=== PATIENT | male | born 1950 | race Caucasian/White ===

== ENCOUNTER 2021-03-03 23:17 | Emergency (ER) | payer OTHER ==
[2021-03-03] MEDS ORDERED: LIDOCAINE 1% W/EPI 1:100,000 MDV 20 ML VIAL ONE (23:59)
[2021-03-04] MEDS ORDERED: CEPHALEXIN 250 MG CAP ONE (00:55)
--- NOTE | 2021-03-04 01:10 | ER ---
Nurse's Notes [facility] Name: Adolph Arriaga Age: 70 yrs Sex: Female : 1950 Arrival Date: 03/03/2021 Time: 23:24 Bed 27 Private MD: Diagnosis: Fall on same level, unspecified;Contusion of left knee;Abrasion, left knee;Laceration without foreign body of unspecified part of head Presentation: 03/03 23:26 Chief complaint: Patient states: Pt reports "getting foot caught under leg of foot bc5 stool" and "tripped up and fell forward". Pt denies dizziness, blurry vision, LOC at this time. Lac noted to left side of forehead. A\\T\\O x 3, RR is even and unlabored, speaking in clear and complete sentences. Bleeding controlled via pressure dressing. Coronavirus screen: Client denies travel out of the [place] in the last 14 days. At this time, the client does not indicate any symptoms associated with coronavirus-19. Ebola Screen: Patient negative for fever greater than or equal to 101.5 degrees Fahrenheit, and additional compatible Ebola Virus Disease symptoms Patient denies exposure to infectious person. Patient denies travel to an Ebola-affected area in the 21 days before illness onset. No symptoms or risks identified at this time. Initial Sepsis Screen: Does the patient meet any 2 criteria? No. Patient's initial sepsis screen is negative. Does the patient have a suspected source of infection? No. Patient's initial sepsis screen is negative. Risk Assessment: Do you want to hurt yourself or someone else? Patient reports no desire to harm self or others. Onset of symptoms was March 03, 2021. 23:26 Method Of Arrival: Ambulatory bc5 23:26 Acuity: MARIA VICTORIA 3 bc5 Triage Assessment: 23:30 General: Appears comfortable, Behavior is calm, cooperative. Pain: Complains of pain in bc5 left leg. Historical: - Allergies: 23:30 Morphine (Vomiting); bc5 - PMHx: 23:31 Hypertensive disorder; bc5 - PSHx: 23:31 Stented artery; bc5 - Immunization history:: Client reports having NOT received the Covid vaccine. - Social history:: Smoking status: Patient denies any tobacco usage or history of. - Family history:: not pertinent. Screenin:30 Abuse screen: Denies threats or abuse. Denies injuries from another. Nutritional bc5 screening: No deficits noted. Tuberculosis screening: No symptoms or risk factors identified. Fall Risk. Assessment: 03/04 00:14 General: Appears in no apparent distress. distressed, Behavior is calm, cooperative, lh3 appropriate for age. Vital Signs: 03/03 23:26 BP 190 / 115; Pulse 68; Resp 17; Temp 98(O); Pulse Ox 97% on R/A; Weight 95.25 kg (R); bc5 Height 5 ft. 8 in. (172.72 cm) (R); Pain 10/31; 03/04 00:14 BP 180 / 110; Pulse 73; Resp 18; Pulse Ox 97% on R/A; lh3 01:02 BP 135 / 88; Pulse 71; Resp 18; Pulse Ox 95% on R/A; lh3 03/03 23:26 Body Mass Index 31.93 (95.25 kg, 172.72 cm) bc5 [place] Coma Score: 00:17 Eye Response: spontaneous(4). Verbal Response: oriented(5). Motor Response: obeys manish commands(6). Total: 15. ED Course: 03/03 23:24 Patient arrived in ED. wg 23:27 Brian Johnson MD is Attending Physician. [facility] 23:29 Triage completed. bc5 23:32 Arm band placed on right wrist. bc5 23:32 Patient has correct armband on for positive identification. Placed in gown. Bed in low bc5 position. Call light in reach. Side rails up X2. Adult w/ patient. 03/04 00:14 No provider procedures requiring assistance completed. Inserted saline lock: 18 gauge lh3 in right forearm, using aseptic technique. Blood collected. 00:15 Norma Ozuna, NOMI is Primary Nurse. 3 00:29 CT Head C Spine In Process Unspecified. EDMS 01:31 Knee Left 3 View XRAY In Process Unspecified. EDMS 01:34 IV discontinued, intact, bleeding controlled, No redness/swelling at site. Pressure lh3 dressing applied. Administered Medications: 03/03 23:47 Drug: Lidocaine-Epinephrine -1%: (1:100,000) 1 vials Volume: 20 ml; Route: Infiltration;3 03/04 00:13 Drug: Lidocaine-Epinephrine -1%: (1:100,000) 8 ml Volume: 20 ml; Route: Infiltration; 3 00:31 Drug: KeFLEX (cephalexin) 500 mg Route: PO; 3 01:34 Follow up: Response: No adverse reaction 3 01:26 Drug: Tetanus-Diphtheria Toxoid Adult 0.5 ml {Milker Machine: [employer]. Exp: 3 08/08/2022. Lot #: [id number]. } Route: IM; Site: left deltoid; 01:33 Follow up: Response: No adverse reaction 3 Outcome: 01:10 Discharge ordered by MD. hammond 01:34 Discharged to home ambulatory, with significant other. 3 01:34 Condition: good 01:34 Discharge instructions given to patient, Instructed on discharge instructions, medication usage, Demonstrated understanding of instructions, follow-up care, medications, Prescriptions given X 2. 01:35 Patient left the ED. 3 Signatures: Dispatcher [employer] EDMS Brian Johnson MD MD cha Hardee, Latisha, RN RN [facility] Gonzales An RN [place], RN RN 5
--- NOTE | 2021-03-04 01:11 | EDPHYS ---
Physician Documentation [facility] Name: Adolph Arriaga Age: 70 yrs Sex: Female : 1950 Arrival Date: 03/03/2021 Time: 23:24 Bed 27 Private MD: ED Physician Brian Johnson HPI: 03/04 00:12 This 70 yrs old Female presents to ER via Ambulatory with complaints of fall manish hit head and left knee. 00:12 The patient presents with decreased range of motion, pain, that is acute. The manish complaints affect the left knee, forehead. Context: The problem was sustained at home. Onset: The symptoms/episode began/occurred just prior to arrival. Modifying factors: The symptoms are alleviated by nothing. the symptoms are aggravated by nothing. Associated signs and symptoms: The patient has no apparent associated signs or symptoms. The patient complains of pain to the forehead. The patient describes the headache as constant. Onset: The symptoms/episode began/occurred just prior to arrival. Associated signs and symptoms: The patient has no apparent associated signs or symptoms. Severity of symptoms: At its worst the pain was mild, in the emergency department the pain is unchanged. Historical: - Allergies: 03/03 23:30 Morphine (Vomiting); bc5 - PMHx: 23:31 Hypertensive disorder; bc5 - PSHx: 23:31 Stented artery; bc5 - Immunization history:: Client reports having NOT received the Covid vaccine. - Social history:: Smoking status: Patient denies any tobacco usage or history of. - Family history:: not pertinent. ROS: 03/04 00:12 Constitutional: Negative for fever, chills, and weight loss, Eyes: Negative for injury, manish pain, redness, and discharge, ENT: Negative for injury, pain, and discharge, Neck: Negative for injury, pain, and swelling, Cardiovascular: Negative for chest pain, palpitations, and edema, Respiratory: Negative for shortness of breath, cough, wheezing, and pleuritic chest pain, Abdomen/GI: Negative for abdominal pain, nausea, vomiting, diarrhea, and constipation, Back: Negative for injury and pain, : Negative for injury, bleeding, discharge, and swelling, Psych: Negative for depression, anxiety, suicide ideation, homicidal ideation, and hallucinations, Allergy/Immunology: Negative for hives, rash, and allergies, Endocrine: Negative for neck swelling, polydipsia, polyuria, polyphagia, and marked weight changes, Hematologic/Lymphatic: Negative for swollen nodes, abnormal bleeding, and unusual bruising. MS/extremity: Positive for decreased range of motion, pain, swelling, of the left knee. Exam: 00:12 Constitutional: This is a well developed, well nourished patient who is awake, alert, manish and in no acute distress. Head/Face: Normocephalic, atraumatic. Eyes: Pupils equal round and reactive to light, extra-ocular motions intact. Lids and lashes normal. Conjunctiva and sclera are non-icteric and not injected. Cornea within normal limits. Periorbital areas with no swelling, redness, or edema. ENT: Nares patent. No nasal discharge, no septal abnormalities noted. Tympanic membranes are normal and external auditory canals are clear. Oropharynx with no redness, swelling, or masses, exudates, or evidence of obstruction, uvula midline. Mucous membranes moist. Neck: Trachea midline, no thyromegaly or masses palpated, and no cervical lymphadenopathy. Supple, full range of motion without nuchal rigidity, or vertebral point tenderness. No Meningismus. Chest/axilla: Normal chest wall appearance and motion. Nontender with no deformity. No lesions are appreciated. Cardiovascular: Regular rate and rhythm with a normal S1 and S2. No gallops, murmurs, or rubs. Normal PMI, no JVD. No pulse deficits. Respiratory: Lungs have equal breath sounds bilaterally, clear to auscultation and percussion. No rales, rhonchi or wheezes noted. No increased work of breathing, no retractions or nasal flaring. Abdomen/GI: Soft, non-tender, with normal bowel sounds. No distension or tympany. No guarding or rebound. No evidence of tenderness throughout. Back: No spinal tenderness. No costovertebral tenderness. Full range of motion. Female : Normal external genitalia. Skin: Warm, dry with normal turgor. Normal color with no rashes, no lesions, and no evidence of cellulitis. Neuro: Awake and alert, GCS 15, oriented to person, place, time, and situation. Cranial nerves II-XII grossly intact. Motor strength 5/5 in all extremities. Sensory grossly intact. Cerebellar exam normal. Normal gait. Psych: Awake, alert, with orientation to person, place and time. Behavior, mood, and affect are within normal limits. 00:12 Musculoskeletal/extremity: Extremities: grossly normal except: noted in the left knee: decreased ROM, pain, ROM: full active range of motion, full passive range of motion, Circulation is intact in all extremities. Sensation intact. Compartment Syndrome exam of affected extremity: is normal. Weight bearing: able to fully bear weight, without difficulty, DVT Exam: negative Homans' sign noted on exam, no appreciated bluish discoloration, no erythema, no increased warmth, pain, swelling, tenderness. Vital Signs: 03/03 23:26 BP 190 / 115; Pulse 68; Resp 17; Temp 98(O); Pulse Ox 97% on R/A; Weight 95.25 kg (R); bc5 Height 5 ft. 8 in. (172.72 cm) (R); Pain 6/10; 03/04 00:14 BP 180 / 110; Pulse 73; Resp 18; Pulse Ox 97% on R/A; lh3 01:02 BP 135 / 88; Pulse 71; Resp 18; Pulse Ox 95% on R/A; lh3 03/03 23:26 Body Mass Index 31.93 (95.25 kg, 172.72 cm) bc5 [place] Coma Score: 00:17 Eye Response: spontaneous(4). Verbal Response: oriented(5). Motor Response: obeys manish commands(6). Total: 15. Laceration: 00:16 Wound Repair of 4cm ( 1.6in ) subcutaneous laceration to forehead. Irregularly shaped.. manish Distal neuro/vascular/tendon intact. Anesthesia: Local anesthetic administered with 8 mls of 1% lidocaine w/ Epi. Wound prep: Simple cleansing. Skin closed with 2 5-0 Vicryl using interrupted sutures and sterile technique. Dressed with Neosporin, pressure dressing, non-adherent dressing. Patient tolerated well. MDM: 03/03 23:27 Patient medically screened. manish 03/04 00:17 Differential diagnosis: contusion, cerebral vascular accident, epidural hematoma, manish intracerebral hemorrhage. Data reviewed: vital signs, nurses notes. 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 Counseling: I had a detailed discussion with the patient and/or guardian regarding: the historical points, exam findings, and any diagnostic results supporting the discharge/admit diagnosis, the presence of at least one elevated blood pressure reading (>120/80) during this emergency department visit, radiology results. 03/03 23:44 Order name: CT Head C Spine [facility] 03/04 00:12 Order name: Knee Left 3 View XRAY [facility] 03/04 00:10 Order name: Dressing - Wound; Complete Time: 00: [facility] 03/04 00:10 Order name: Gloves, Sterile; Complete Time: 00: [facility] 03/04 00:10 Order name: Prolene, Sutures; Complete Time: 00: [facility] 03/04 00:10 Order name: Setup Suture Tray; Complete Time: : [facility] 03/04 00:10 Order name: Ice pack; Complete Time: : [facility] 03/04 00:11 Order name: Maurice Wrap; Complete Time: 00:13 [facility] Administered Medications: 03/03 23:47 Drug: Lidocaine-Epinephrine -1%: (1:100,000) 1 vials Volume: 20 ml; Route: Infiltration;[facility] 03/04 00:13 Drug: Lidocaine-Epinephrine -1%: (1:100,000) 8 ml Volume: 20 ml; Route: Infiltration; [facility] 00:31 Drug: KeFLEX (cephalexin) 500 mg Route: PO; [facility] 01:34 Follow up: Response: No adverse reaction [facility] 01:26 Drug: Tetanus-Diphtheria Toxoid Adult 0.5 ml {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 Exp: [facility] 08/08/2022. Lot #: [id number]. } Route: IM; Site: left deltoid; 01:33 Follow up: Response: No adverse reaction [facility] Disposition Summary: 03/04/21 01:10 Discharge Ordered Location: Home manish Problem: new manish Symptoms: have improved manish Condition: Stable manish Diagnosis - Fall on same level, unspecified manish - Contusion of left knee manish - Abrasion, left knee manish - Laceration without foreign body of unspecified part of head manish Followup: manish - With: Private Physician - When: 2 - 3 days - Reason: Recheck today's complaints, Continuance of care, Re-evaluation by your physician Discharge Instructions: - Discharge Summary Sheet manish - Abrasion manish - Fall Prevention in the Home, Adult manish - Laceration Care, Adult manish - Laceration Care, Adult, [id number] manish - Head Injury, Adult manish - Abrasion, [id number]-[id number] [facility] - Fall Prevention in the Home, Adult, [id number] manish - Head Injury, Adult, [id number] [facility] Forms: - Medication Reconciliation Form [facility] - Thank You Letter manish - Antibiotic Education [facility] - Prescription Opioid Use [facility] Prescriptions: - Cephalexin 500 mg Oral Capsule - take 1 capsule by ORAL route every 6 hours for 10 days; 40 capsule; Refills: 0, [facility] Product Selection Permitted - Tylenol 325 mg Oral Tablet - take 2 tablets by ORAL route every 6 hours as needed; 1 bottle; Refills: 0, [facility] Product Selection Permitted Signatures: Dispatcher [employer] Brian Juárez MD MD cha Hardee, Latisha, RN RN lh3 [place] RN RN bc5 Corrections: (The following items were deleted from the chart) 00:29 10/11 23:44 Ankle Left 3 View+RAD.RAD.BRZ ordered. ANUSHKA REVELES
[2021-03-04 01:40] VITALS: TEMP 98
[2021-03-04 01:43] VITALS: BP 135/88; O2SAT 95
[2021-03-04] MEDS ORDERED: TETANUS & DIPHTHERIA TOX,ADULT 0.5 ML VIAL ONE (01:46)
--- NOTE | 2021-03-04 08:53 | RAD REPORT ---
EXAM DESCRIPTION: RAD - Knee Left 3 View - 03/04/2021 1:32 am CLINICAL HISTORY: PAIN COMPARISON: No comparisons FINDINGS: Severe osteoarthritis is present involving the left knee with [id number] involving the m edial compartment. Large ossific loose bodies are present in the joint space. No acute fracture evide nt. IMPRESSION: Severe osteoarthritis.
--- NOTE | 2021-03-04 15:07 | RAD REPORT ---
EXAM DESCRIPTION: FALL COMPARISON: None. TECHNIQUE: CT HEAD AND CERVICAL SPINE WITHOUT CONTRAST on 03/03/2021 11:44 PM CDT This exam was performed according to our departmental dose-optimization program, which includes autom ated exposure control, adjustment of the mA and/or kV according to patient size and/or use of iterati ve reconstruction technique. FINDINGS: Brain: There is no acute hemorrhage, mass effect or midline shift. Dumont-white differentiat ion is preserved. There is no hydrocephalus. There is bifrontal mild cerebral atrophy. There is a lef t frontal scalp contusion. The calvarium is intact. Orbits and globes are unremarkable. The paranasal sinuses are clear. Mastoid air cells are clear. Cervical Spine: There is no acute fracture. There is grade 1 anterolisthesis of C3 on C4 and C4 on C5 . There is moderate bilateral facet arthritis. There is moderate narrowing of the C5-C6, C6-C7 and C7-T1 discs. Vertebral body heights are preserved . Soft tissues are unremarkable. IMPRESSION: Left frontal scalp contusion without fracture or intracranial hemorrhage. Degenerative changes of the cervical spine without fracture. Electronically signed by: Richie Carbajal MD 03/04/2021 1:05 AM CDT Due to temporary technical issues with the PACS/Fluency reporting system, reports are being signed by the in house radiologist without review as a courtesy to ensure prompt reporting. The interpreting r adiologist is fully responsible for the content of the report.
== END 2021-03-04 01:35 | disposition home or self-care (01) ==
LOC: EDSEX → ER 23:17
PROC: 0JQ10ZZ Repair Face Subcutaneous Tissue and Fascia, Open Approach (ICD-10-PCS; principal; 2021-03-04)
DX: S01.81XA Laceration without foreign body of other part of head, initial encounter (principal); S80.212A Abrasion, left knee, initial encounter; W18.30XA Fall on same level, unspecified, initial encounter; Y92.009 Unspecified place in unspecified non-institutional (private) residence as the place of occurrence of the external cause; I10 Essential (primary) hypertension; Z88.5 Allergy status to narcotic agent; Z23 Encounter for immunization
CPT/HCPCS: 70450; 72125; 90471; 90714; 99284

== ENCOUNTER 2021-03-04 22:00 | Emergency (ER) | payer OTHER ==
[2021-03-04] MEDS ORDERED: LIDOCAINE 1% W/EPI 1:100,000 MDV 20 ML VIAL ONE (23:03)
--- NOTE | 2021-03-04 23:20 | EDPHYS ---
Physician Documentation [facility] Name: Adolph Arriaga Age: 70 yrs Sex: Male : 1950 Arrival Date: 03/04/2021 Time: 22:05 Bed 13 Private MD: ED Physician Brian Johnson HPI: 03/04 23:13 This 70 yrs old Male presents to ER via Wheelchair with complaints of manish BLEEDING THROUGH STITCHES. 23:13 The patient or guardian reports tenderness, bleeding through stiches. The complaints manish affect the forehead. Context of injury: The problem was sustained at home. Onset: The symptoms/episode began/occurred yesterday. Associated signs and symptoms: The patient has no apparent associated signs or symptoms. Severity of symptoms: At their worst the symptoms were mild. The patient has not experienced similar symptoms in the past. Historical: - Allergies: 22:17 Morphine (Vomiting); ss - Home Meds: 22:17 xeralto 10 mg po daily [Active]; ss - PMHx: 22:17 Hypertensive disorder; pacemaker; ss - PSHx: 22:17 Stented artery; ss - Immunization history:: Adult Immunizations not up to date, Client reports having NOT received the Covid vaccine. - Social history:: Smoking status: Patient denies any tobacco usage or history of. - Family history:: not pertinent. ROS: 23:13 Constitutional: Negative for fever, chills, and weight loss, Eyes: Negative for injury, manish pain, redness, and discharge, ENT: Negative for injury, pain, and discharge, Neck: Negative for injury, pain, and swelling, Cardiovascular: Negative for chest pain, palpitations, and edema, Respiratory: Negative for shortness of breath, cough, wheezing, and pleuritic chest pain, Abdomen/GI: Negative for abdominal pain, nausea, vomiting, diarrhea, and constipation, Back: Negative for injury and pain, : Negative for injury, bleeding, discharge, and swelling, MS/Extremity: Negative for injury and deformity, Neuro: Negative for headache, weakness, numbness, tingling, and seizure, Psych: Negative for depression, anxiety, suicide ideation, homicidal ideation, and hallucinations, Allergy/Immunology: Negative for hives, rash, and allergies, Endocrine: Negative for neck swelling, polydipsia, polyuria, polyphagia, and marked weight changes, Hematologic/Lymphatic: Negative for swollen nodes, abnormal bleeding, and unusual bruising. 23:13 Skin: Negative for laceration(s), bleeding through stiches. Exam: 23:13 Constitutional: This is a well developed, well nourished patient who is awake, alert, manish and in no acute distress. Eyes: Pupils equal round and reactive to light, extra-ocular motions intact. Lids and lashes normal. Conjunctiva and sclera are non-icteric and not injected. Cornea within normal limits. Periorbital areas with no swelling, redness, or edema. ENT: Nares patent. No nasal discharge, no septal abnormalities noted. Tympanic membranes are normal and external auditory canals are clear. Oropharynx with no redness, swelling, or masses, exudates, or evidence of obstruction, uvula midline. Mucous membranes moist. Neck: Trachea midline, no thyromegaly or masses palpated, and no cervical lymphadenopathy. Supple, full range of motion without nuchal rigidity, or vertebral point tenderness. No Meningismus. Chest/axilla: Normal chest wall appearance and motion. Nontender with no deformity. No lesions are appreciated. Cardiovascular: Regular rate and rhythm with a normal S1 and S2. No gallops, murmurs, or rubs. Normal PMI, no JVD. No pulse deficits. Respiratory: Lungs have equal breath sounds bilaterally, clear to auscultation and percussion. No rales, rhonchi or wheezes noted. No increased work of breathing, no retractions or nasal flaring. Abdomen/GI: Soft, non-tender, with normal bowel sounds. No distension or tympany. No guarding or rebound. No evidence of tenderness throughout. Back: No spinal tenderness. No costovertebral tenderness. Full range of motion. Male : Normal genitalia with no discharge or lesions. Skin: Warm, dry with normal turgor. Normal color with no rashes, no lesions, and no evidence of cellulitis. MS/ Extremity: Pulses equal, no cyanosis. Neurovascular intact. Full, normal range of motion. Neuro: Awake and alert, GCS 15, oriented to person, place, time, and situation. Cranial nerves II-XII grossly intact. Motor strength 5/5 in all extremities. Sensory grossly intact. Cerebellar exam normal. Normal gait. Psych: Awake, alert, with orientation to person, place and time. Behavior, mood, and affect are within normal limits. 23:13 Head/face: Noted is swelling, that is mild, bleeding between sutures. Vital Signs: 22:15 BP 165 / 88; Pulse 54; Resp 18; Temp 98.0; Pulse Ox 96% on R/A; Weight 95.25 kg; Height ss 5 ft. 8 in. (172.72 cm); Pain 0/10; 22:15 Body Mass Index 31.93 (95.25 kg, 172.72 cm) ss [place] Coma Score: 23:13 Eye Response: spontaneous(4). Verbal Response: oriented(5). Motor Response: obeys manish commands(6). Total: 15. 23:13 Eye Response: spontaneous(4). Verbal Response: oriented(5). Motor Response: obeys manish commands(6). Total: 15. Laceration: 23:13 Wound Repair of 5cm ( 2.0in ) subcutaneous laceration to forehead. Irregularly shaped.. mainsh still bleeding. Distal neuro/vascular/tendon intact. Anesthesia: Local anesthetic administered with 5 mls of 1% lidocaine w/ Epi. Wound prep: Moderate cleansing by me. Skin closed with 3 5-0 Prolene using interrupted sutures and sterile technique. Dressed with pressure dressing. MDM: 22:24 Patient medically screened. manish 23:13 Differential diagnosis: Hematoma on. Data reviewed: vital signs, nurses notes. Data manish interpreted: school bus monitor: not applicable for this patient encounter. rate is 54 beats/min, rhythm is regular. Counseling: I had a detailed discussion with the patient and/or guardian regarding: the historical points, exam findings, and any diagnostic results supporting the discharge/admit diagnosis, the need for outpatient follow up, for definitive care, a deaf interpreter, a family practitioner. 03/04 22:30 Order name: Dressing - Wound; Complete Time: 23:04 manish 03/04 22:30 Order name: Gloves, Sterile; Complete Time: 23:04 manish 03/04 22:30 Order name: Prolene, Sutures; Complete Time: 23:04 manish 03/04 22:30 Order name: Setup Suture Tray; Complete Time: 23:04 manish Administered Medications: 23:04 Drug: Lidocaine-Epinephrine -1%: (1:100,000) 6 ml {Note: by Dr Johnson.} Volume: 20 bs2 ml; Route: Infiltration; Site: affected area; 23:05 Follow up: Response: No adverse reaction bs2 Disposition Summary: 03/04/21 23:19 Discharge Ordered Location: Home manish Problem: new manish Symptoms: have improved manish Condition: Stable manish Diagnosis - Laceration without foreign body of other part of head manish Followup: manish - With: Private Physician - When: 2 - 3 days - Reason: Recheck today's complaints, Continuance of care, Re-evaluation by your physician Followup: manish - With: Lety Kendall MD - When: 2 - 3 days - Reason: Recheck today's complaints, Re-evaluation by your physician Discharge Instructions: - Discharge Summary Sheet manish - Laceration Care, Adult manish - Laceration Care, Adult, [id number] [facility] Forms: - Medication Reconciliation Form manish - Thank You Letter manish - Antibiotic Education manish - Prescription Opioid Use manish Signatures: Brian Johnson MD MD cha Smirch, Shelby, RN RN Karen Sylvester RN RN bs2
--- NOTE | 2021-03-04 23:20 | ER ---
Nurse's Notes [facility] Name: Adolph Arriaga Age: 70 yrs Sex: Male : 1950 Arrival Date: 03/04/2021 Time: 22:05 Bed 13 Private MD: Diagnosis: Laceration without foreign body of other part of head Presentation: 03/04 22:15 Chief complaint: Patient states: stitches to forehead bleeding. Coronavirus screen: ss Vaccine status: Patient reports being unvaccinated. The client reports previous COVID testing was negative. Date of collection: February 21, 2021. Ebola Screen: Patient negative for fever greater than or equal to 101.5 degrees Fahrenheit, and additional compatible Ebola Virus Disease symptoms Patient denies exposure to infectious person. Patient denies travel to an Ebola-affected area in the 21 days before illness onset. Initial Sepsis Screen: Does the patient meet any 2 criteria? No. Patient's initial sepsis screen is negative. Does the patient have a suspected source of infection? No. Patient's initial sepsis screen is negative. Risk Assessment: Do you want to hurt yourself or someone else? Patient reports no desire to harm self or others. Onset of symptoms was March 04, 2021. 22:15 Method Of Arrival: Wheelchair ss 22:15 Acuity: MARIA VICTORIA 4 ss 22:18 Note Pt seen yesterday for head injury repaired with 9 stitches to forehead. Pt states ss one are of wound continues to bleed. Pt taking Xeralto daily, took today. Advised by Coordinator Volunteer Services to stop the next three days. Historical: - Allergies: 22:17 Morphine (Vomiting); ss - Home Meds: 22:17 xeralto 10 mg po daily [Active]; ss - PMHx: 22:17 Hypertensive disorder; pacemaker; ss - PSHx: 22:17 Stented artery; ss - Immunization history:: Adult Immunizations not up to date, Client reports having NOT received the Covid vaccine. - Social history:: Smoking status: Patient denies any tobacco usage or history of. - Family history:: not pertinent. Screenin:02 Abuse screen: Denies threats or abuse. Denies injuries from another. Nutritional bs2 screening: No deficits noted. Tuberculosis screening: No symptoms or risk factors identified. Fall Risk None identified. Assessment: 23:02 General: Appears in no apparent distress. comfortable, well groomed, well developed, bs2 well nourished, Behavior is calm, cooperative, appropriate for age. Pain: Complains of pain in forehead. Neuro: No deficits noted. Cardiovascular: No deficits noted. Respiratory: No deficits noted. GI: No deficits noted. No signs and/or symptoms were reported involving the gastrointestinal system. : No deficits noted. No signs and/or symptoms were reported regarding the genitourinary system. EENT: No deficits noted. No signs and/or symptoms were reported regarding the EENT system. Derm: No deficits noted. No signs and/or symptoms reported regarding the dermatologic system. Musculoskeletal: No deficits noted. No signs and/or symptoms reported regarding the musculoskeletal system. Injury Description: Laceration sustained to forehead pt received stitches last night, but is still bleeding at one end. put additional stitch, now Surgicel and pressure dressing. Vital Signs: 22:15 BP 165 / 88; Pulse 54; Resp 18; Temp 98.0; Pulse Ox 96% on R/A; Weight 95.25 kg; Height ss 5 ft. 8 in. (172.72 cm); Pain 0/10; 22:15 Body Mass Index 31.93 (95.25 kg, 172.72 cm) ss Bryan Coma Score: 23:13 Eye Response: spontaneous(4). Verbal Response: oriented(5). Motor Response: obeys manish commands(6). Total: 15. 23:13 Eye Response: spontaneous(4). Verbal Response: oriented(5). Motor Response: obeys manish commands(6). Total: 15. ED Course: 22:05 Patient arrived in ED. ja2 22:17 Triage completed. ss 22:24 Brian Johnson MD is Attending Physician. manish 23:02 Karen Carty, RN is Primary Nurse. bs2 23:02 Patient has correct armband on for positive identification. Bed in low position. Call bs2 light in reach. Side rails up X 1. Pulse ox on. NIBP on. 23:02 pressure dressing on forehead. Patient did not have IV access during this emergency bs2 room visit. 23:18 Lety Kendall MD is Referral Physician. manish 23:42 Arm band placed on right wrist. bs2 Administered Medications: 23:04 Drug: Lidocaine-Epinephrine -1%: (1:100,000) 6 ml {Note: by Dr Johnson.} Volume: 20 bs2 ml; Route: Infiltration; Site: affected area; 23:05 Follow up: Response: No adverse reaction bs2 Outcome: 23:19 Discharge ordered by MD. hammond 23:42 Discharged to home ambulatory, with family. bs2 23:42 Condition: improved 23:42 Discharge instructions given to patient, significant other, Instructed on discharge instructions, follow up and referral plans. wound care, Demonstrated understanding of instructions, follow-up care, wound care, pressure dressing applied and pt instructed to leave in place for 24 hrs 23:43 Patient left the ED. bs2 Signatures: Brian Johnson MD MD cha Smirch, Shelby RN RN Kaern Sylvester RN RN bs2 Bailey Cano
[2021-03-05 00:17] VITALS: BP 165/88; TEMP 98; O2SAT 96
== END 2021-03-04 23:43 | disposition home or self-care (01) ==
LOC: ER 22:00 → EDSEX 22:00 → ER 23:43
PROC: 0JQ10ZZ Repair Face Subcutaneous Tissue and Fascia, Open Approach (ICD-10-PCS; principal; 2021-03-04)
DX: S01.81XS Laceration without foreign body of other part of head, sequela (principal); W18.30XS Fall on same level, unspecified, sequela; I10 Essential (primary) hypertension; Z79.01 Long term (current) use of anticoagulants; Z88.5 Allergy status to narcotic agent; Z95.0 Presence of cardiac pacemaker
CPT/HCPCS: 99283